=== PATIENT | female | born 1990 | race Caucasian/White ===

== ENCOUNTER 2017-02-09 18:21 | Emergency (ER) | payer SELFPAY | END 2017-02-09 18:30 | disposition home or self-care (01) | LOC: ER 18:21 | DX: S63.501A Unspecified sprain of right wrist, initial encounter (principal); F17.200 Nicotine dependence, unspecified, uncomplicated; W19.XXXA Unspecified fall, initial encounter | CPT/HCPCS: 73110-RT; 99283; A9270-GY ==